=== PATIENT | female | born 1995 | race Caucasian/White ===

== ENCOUNTER 2016-10-02 14:41 | Outpatient (CLI) | payer OTHER | END 2016-10-02 14:42 | disposition home or self-care (01) | DX: R10.2 Pelvic and perineal pain (principal) ==

== ENCOUNTER 2016-10-07 00:19 | Emergency (ER) | payer OTHER ==
[2016-10-07] MEDS ORDERED: ONDANSETRON ODT 4 MG TABLET TL STA (02:02)
[2016-10-07] MEDS ORDERED: ONDANSETRON ODT 4 MG TABLET ONE (02:06)
== END 2016-10-07 02:12 | disposition home or self-care (01) ==
DX: R42 Dizziness and giddiness (principal)
CPT/HCPCS: 81003; 81025; 99283; Q0162

== ENCOUNTER 2016-10-14 10:32 | Outpatient (CLI) | payer OTHER | END 2016-10-14 10:33 | disposition home or self-care (01) | DX: R10.9 Unspecified abdominal pain (principal) ==

== ENCOUNTER 2016-10-19 18:10 | Outpatient (CLI) | payer OTHER ==
--- NOTE | 2016-10-20 12:38 | Ultrasound Report ---
ABDOMINAL ULTRASOUND: 10/19/2016 CLINICAL INDICATION: Pain. TECHNIQUE: Real-time scanning was performed with solar sales representative static images obtained. FINDINGS: The liver measures 14 cm. Hepatic echogenicity is normal. No intrahepatic biliary dilata tion or focal parenchymal lesion is present. The common bile duct measures 2 mm. The gallbladder is normal, as is the pancreas. The kidneys are normal, with the right measuring 9.3 cm and the left me asuring 9.0 cm. The spleen measures 10.2 cm, and demonstrates normal echotexture. The abdominal aor ta is normal in caliber. The inferior vena cava is unremarkable. No free fluid is present. IMPRESSION: NORMAL ABDOMINAL ULTRASOUND. JOB #: [id number] EXT JOB #:[id number]
== END 2016-10-19 18:11 | disposition home or self-care (01) ==
LOC: DI 18:10
PROVIDERS: ATTEND Physician Assistant Medical
DX: R10.9 Unspecified abdominal pain (principal)
CPT/HCPCS: 76700

== ENCOUNTER 2017-02-24 08:00 | Outpatient (CLI) | payer OTHER | END 2017-02-24 08:01 | disposition home or self-care (01) | LOC: LAB.WCP 08:00 | PROVIDERS: ATTEND Physician Assistant Medical | DX: N76.0 Acute vaginitis (principal) | CPT/HCPCS: 87480; 87491; 87510; 87591; 87660 ==

== ENCOUNTER 2018-04-29 20:27 | Outpatient (CLI) | payer OTHER | END 2018-04-29 20:28 | disposition critical access hospital (66) | LOC: EMS 20:27 | PROVIDERS: ATTEND Surgery | DX: M25.572 Pain in left ankle and joints of left foot (principal); V47.5XXA Car driver injured in collision with fixed or stationary object in traffic accident, initial encounter; Y92.410 Unspecified street and highway as the place of occurrence of the external cause | CPT/HCPCS: A0425; A0429 ==

== ENCOUNTER 2018-04-29 20:42 | Emergency (ER) | payer OTHER ==
[2018-04-29] MEDS ORDERED: SODIUM CHLORIDE 0.9% 1,000 ML IV ONE (20:56)
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
[2018-04-29 21:11] LABS: BASOPHILS # (AUTO) 0.1 10^3/uL (0.0-0.1); BASOPHILS % (AUTO) 0.9 %; EOSINOPHILS # (AUTO) 0.1 10^3/uL (0.0-0.7); EOSINOPHILS % (AUTO) 1.2 %; HGB - HEMOGLOBIN 13.3 g/dL (12.0-16.0); LYMPHOCYTES # (AUTO) 2.4 10^3/uL (1.5-3.5); LYMPHOCYTES % (AUTO) 24.4 %; MEAN CORPUSCULAR HEMOGLOBIN 30.5 pg (27.0-31.0); MEAN CORPUSCULAR HGB CONC 33.4 g/dL (32.0-36.0); MEAN CORPUSCULAR VOLUME 91.4 fL (81.0-99.0); MEAN PLATELET VOLUME 9.1 fL (7.9-10.8); MONOCYTES # (AUTO) 0.7 10^3/uL (0.0-1.0); MONOCYTES % (AUTO) 7.3 %; NEUTROPHILS # (AUTO) 6.5 10^3/uL (1.5-6.6); NEUTROPHILS % (AUTO) 66.2 %; PLT - PLATELET COUNT 187 10^3/uL (130-450); RED BLOOD COUNT 4.34 10^6/uL (4.20-5.40); RED CELL DISTRIBUTION WIDTH 12.4 % (12.0-15.0); WHITE BLOOD COUNT 9.8 x10^3/uL (4.8-10.8)
[2018-04-29 21:23] LABS: ALBUMIN 4.3 g/dL (3.2-5.5); ALBUMIN/GLOBULIN RATIO 1.5 (1.0-2.2); BILIRUBIN,TOTAL 0.4 mg/dL (0.2-1.0); CALCIUM 8.8 mg/dL (8.5-10.3); CREATININE 0.7 mg/dL (0.4-1.0); TOTAL PROTEIN 7.1 g/dL (6.7-8.2)
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
[2018-04-29 22:11] LABS: BILIRUBIN,URINE NEGATIVE (NEGATIVE); GLUCOSE, URINE (UA) NEGATIVE (NEGATIVE); KETONES,URINE (UA) NEGATIVE (NEGATIVE); LEUKOCYTE ESTERASE, URINE NEGATIVE (NEGATIVE); NITRITE,URINE NEGATIVE (NEGATIVE); OCCULT BLOOD,URINE MODERATE (NEGATIVE); PROTEIN,URINE NEGATIVE (NEGATIVE); UROBILINOGEN,URINE 0.2 (NORMAL) E.U./dL (NORMAL)
[2018-04-29 22:17] LABS: CLARITY,URINE CLEAR (CLEAR)
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
[2018-04-29 22:25] LABS: BACTERIA,URINE Many /HPF (None Seen); SQUAMOUS EPITHELIAL CELL,UR MANY Squamous (<= Few); WBC CLUMPS,URINE PRESENT
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
[2018-04-29] MEDS ORDERED: BUFFERED LIDOCAINE 10 ML SYRINGE ONE (23:05)
[2018-04-29] MEDS ORDERED: BUFFERED LIDOCAINE 10 ML SYRINGE IU ONE (23:09)
[2018-04-29] MEDS ORDERED: HYDROcod/ACETAM 5/325 MG TABLET PO STA (23:35)
[2018-04-29] MEDS ORDERED: KETOROLAC 60 MG/2 ML VIAL IVP STA (23:35)
[2018-04-29 23:55] VITALS: BP 128/82
== END 2018-04-30 00:15 | disposition home or self-care (01) ==
LOC: ED 20:42
DX: S09.90XA Unspecified injury of head, initial encounter (principal); S01.411A Laceration without foreign body of right cheek and temporomandibular area, initial encounter; S81.812A Laceration without foreign body, left lower leg, initial encounter; S16.1XXA Strain of muscle, fascia and tendon at neck level, initial encounter; S00.83XA Contusion of other part of head, initial encounter; S02.2XXA Fracture of nasal bones, initial encounter for closed fracture; S01.81XA Laceration without foreign body of other part of head, initial encounter; S60.221A Contusion of right hand, initial encounter; S80.10XA Contusion of unspecified lower leg, initial encounter; S01.512A Laceration without foreign body of oral cavity, initial encounter; V47.0XXA Car driver injured in collision with fixed or stationary object in nontraffic accident, initial encounter
CPT/HCPCS: 12001; 12011; 36415; 70450; 70486; 71046; 72125; 73080; 73130; 73560; 73590; 80053; 81001; 83690; 84702; 85025; 96361; 96374; 99284; A9270; 81003; 87086

== ENCOUNTER 2018-10-31 09:32 | Outpatient (CLI) | payer OTHER | END 2018-10-31 23:59 | disposition home or self-care (01) | LOC: LAB.WCP 09:32 | PROVIDERS: ATTEND Nurse Practitioner | DX: N91.2 Amenorrhea, unspecified (principal) | CPT/HCPCS: 36415; 84702 ==

== ENCOUNTER 2020-08-16 14:33 | Outpatient (CLI) | payer OTHER ==
--- NOTE | 2020-08-16 15:21 | XRAY Report ---
PROCEDURE: Hand 2 View BILAT INDICATIONS: HAND JOINT PAIN TECHNIQUE: 2 views of the hand(s) acquired. COMPARISON: Right hand radiograph dated 04/29/2018 FINDINGS: Bones: No fractures or dislocations. No suspicious bony lesions. Soft tissues: No suspicious soft tissue calcifications. IMPRESSION: Unremarkable radiographic examination of bilateral hands. No bony erosive changes are noted to sugges t inflammatory arthropathy. Reviewed by: Sanket Andrew MD on 08/16/2020 3:19 PM PST Approved by: Sanket Andrew MD on 08/16/2020 3:19 PM PST Station ID: [id number]
[2020-08-16 18:17] LABS: BASOPHILS # (AUTO) 0.1 10^3/uL (0.0-0.1); BASOPHILS % (AUTO) 0.9 %; EOSINOPHILS # (AUTO) 0.1 10^3/uL (0.0-0.7); EOSINOPHILS % (AUTO) 1.7 %; HGB - HEMOGLOBIN 13.7 g/dL (12.0-16.0); LYMPHOCYTES # (AUTO) 1.6 10^3/uL (1.5-3.5); MEAN CORPUSCULAR HEMOGLOBIN 30.8 pg (27.0-31.0); MEAN CORPUSCULAR HGB CONC 32.5 g/dL (32.0-36.0); MEAN CORPUSCULAR VOLUME 94.8 fL (81.0-99.0); MEAN PLATELET VOLUME 11.7 fL (7.9-10.8); MONOCYTES # (AUTO) 0.5 10^3/uL (0.0-1.0); MONOCYTES % (AUTO) 8.9 %; NEUTROPHILS # (AUTO) 3.5 10^3/uL (1.5-6.6); NEUTROPHILS % (AUTO) 60.3 %; PLT - PLATELET COUNT 213 10^3/uL (130-450); RED BLOOD COUNT 4.45 10^6/uL (4.20-5.40); RED CELL DISTRIBUTION WIDTH 11.6 % (12.0-15.0); WHITE BLOOD COUNT 5.8 x10^3/uL (4.8-10.8)
[2020-08-16 18:46] LABS: HEMOGLOBIN A1c% 5.1 % (4.27-6.07)
[2020-08-16 18:50] LABS: ALBUMIN 4.6 g/dL (3.2-5.5); ALBUMIN/GLOBULIN RATIO 1.8 (1.0-2.2); ALKALINE PHOSPHATASE 60 IU/L (42-121); ALT ALANINE AMINOTRANSFERASE 20 IU/L (10-60); AST ASPARTATE AMINOTRANSFERASE 19 IU/L (10-42); BILIRUBIN,TOTAL 0.4 mg/dL (0.2-1.0); BUN - BLOOD UREA NITROGEN 14 mg/dL (6-20); CALCIUM 9.5 mg/dL (8.5-10.3); CARBON DIOXIDE - CO2 28 mmol/L (21-32); CHLORIDE 102 mmol/L (101-111); CREATININE 0.7 mg/dL (0.4-1.0); GLUCOSE 100 mg/dL (70-100); SODIUM 137 mmol/L (135-145); TOTAL PROTEIN 7.2 g/dL (6.7-8.2)
[2020-08-16 18:57] LABS: CRP - C-REACTIVE PROTEIN < 1.0 mg/dL (0-1.0)
== END 2020-08-16 23:59 | disposition home or self-care (01) ==
LOC: DI.WCP 14:33
PROVIDERS: ATTEND Physician Assistant
DX: Z00.00 Encounter for general adult medical examination without abnormal findings (principal); M79.641 Pain in right hand; M79.642 Pain in left hand
CPT/HCPCS: 36415; 80053; 83036; 84443; 85025; 85651; 86038; 86140

== ENCOUNTER 2020-09-13 11:46 | Outpatient (CLI) | payer OTHER | END 2020-09-13 23:59 | disposition home or self-care (01) | LOC: LAB.WCP 11:46 | PROVIDERS: ATTEND Physician Assistant Medical | DX: F41.0 Panic disorder [episodic paroxysmal anxiety] (principal); M25.549 Pain in joints of unspecified hand | CPT/HCPCS: 36415; 82306 ==

== ENCOUNTER 2020-10-24 16:57 | Outpatient (CLI) | payer OTHER ==
--- NOTE | 2020-10-25 13:32 | Ultrasound Report ---
PROCEDURE: Pelvic w/Transvaginal INDICATIONS: INFERTILITY INVESTIGATION/TESTING TECHNIQUE: Real-time scanning was performed of the pelvic organs, with image documentation. Additional endovagi nal scanning was necessary due to incomplete visualization of the adnexal and endometrial structures by transabdominal scanning. COMPARISON: Pelvic ultrasound 10/02/2016 FINDINGS: No pathologic free abdominal or pelvic fluid. Uterus: Uterus is normal in size at 7.7 x 3.7 x 4.8 cm. The endometrium measures 8.3 mm in combined thickness. Ovaries: Right ovary measures 4.5 x 2.8 x 3.9 cm, volume 25.8 cc. There is a focus of complex echoge nicity within the right ovary measuring 1.9 x 2.1 x 2.6 cm. Left ovary measures 3.3 x 1.4 x 2.8 cm, v olume 1.9 cc. IMPRESSION: Focus of heterogeneous echogenicity within the right ovary suggestive of hemorrhagic cyst. As clinica lly indicated, follow-up ultrasound to document resolution may be obtained in 6 weeks. Reviewed by: Ana Rosa Flynn MD on 10/25/2020 1:31 PM PDT Approved by: Ana Rosa Flynn MD on 10/25/2020 1:31 PM PDT Station ID: [id number]
== END 2020-10-24 16:58 | disposition home or self-care (01) ==
LOC: DI 16:57
PROVIDERS: ATTEND Nurse Practitioner Obstetrics & Gynecology
DX: Z31.41 Encounter for fertility testing (principal)

== ENCOUNTER 2020-10-29 13:59 | Outpatient (CLI) | payer OTHER | END 2020-10-29 14:00 | disposition home or self-care (01) | LOC: NS 13:59 | PROVIDERS: ATTEND Nurse Practitioner Obstetrics & Gynecology | DX: Z71.3 Dietary counseling and surveillance (principal); R63.6 Underweight; Z72.4 Inappropriate diet and eating habits | CPT/HCPCS: 97802 ==

== ENCOUNTER 2020-11-18 14:32 | Outpatient (CLI) | payer OTHER ==
--- NOTE | 2020-11-18 17:16 | Ultrasound Report ---
PROCEDURE: Pelvic w/Transvaginal INDICATIONS: RT SIDE OVARIAN CYST TECHNIQUE: Real-time scanning was performed of the pelvic organs, with image documentation. Additional endovagi nal scanning was necessary due to incomplete visualization of the adnexal and endometrial structures by transabdominal scanning. COMPARISON: None. FINDINGS: No pathologic free abdominal or pelvic fluid. Uterus: Uterus is normal in size at 3.3 x 4.9 x 8.3 cm cm. The endometrium measures 7.0 mm in combi nichole thickness. Ovaries: The right ovary measures 3.1 x 2.0 x 2.9 cm. A right-sided ovarian cyst previously present has resolved. The left ovary measures 3.5 x 2.2 x 2.8 cm. IMPRESSION: Resolution of right-sided ovarian cyst. Normal-appearing ovaries bilaterally, normal appearing uterus . Reviewed by: Damir Marcus MD on 11/18/2020 5:15 PM PDT Approved by: Damir Marcus MD on 11/18/2020 5:15 PM PDT Station ID: [id number]
== END 2020-11-18 14:33 | disposition home or self-care (01) ==
LOC: DI 14:32
PROVIDERS: ATTEND Nurse Practitioner Obstetrics & Gynecology
DX: N83.291 Other ovarian cyst, right side (principal)

== ENCOUNTER 2021-04-16 08:00 | Outpatient (CLI) | payer OTHER | END 2021-04-16 23:59 | disposition home or self-care (01) | LOC: LAB.WCP 08:00 | PROVIDERS: ATTEND Physician Assistant Medical | DX: N91.2 Amenorrhea, unspecified (principal) | CPT/HCPCS: 36415; 84702 ==

== ENCOUNTER 2021-04-22 08:00 | Outpatient (CLI) | payer OTHER ==
[2021-04-22 17:05] LABS: BILIRUBIN,URINE NEGATIVE (NEGATIVE); GLUCOSE, URINE (UA) NEGATIVE (NEGATIVE); KETONES,URINE (UA) NEGATIVE (NEGATIVE); LEUKOCYTE ESTERASE, URINE MODERATE (NEGATIVE); NITRITE,URINE NEGATIVE (NEGATIVE); OCCULT BLOOD,URINE NEGATIVE (NEGATIVE); PH,URINE 7.5 PH (5.0-7.5); PROTEIN,URINE NEGATIVE (NEGATIVE); UROBILINOGEN,URINE 0.2 (NORMAL) E.U./dL (NORMAL)
[2021-04-22 17:17] LABS: CLARITY,URINE HAZY (CLEAR); RBC,URINE None Seen /HPF (0-5); SQUAMOUS EPITHELIAL CELL,UR MANY Squamous (<= Few)
[2021-04-22 17:18] LABS: BACTERIA,URINE Few /HPF (None Seen)
== END 2021-04-22 23:59 | disposition home or self-care (01) ==
LOC: LAB.WC 08:00
PROVIDERS: ATTEND Nurse Practitioner Obstetrics & Gynecology
DX: Z32.01 Encounter for pregnancy test, result positive (principal)
CPT/HCPCS: 81001; 87086

== ENCOUNTER 2021-04-30 20:18 | Outpatient (CLI) | payer OTHER ==
--- NOTE | 2021-04-30 23:53 | Ultrasound Report ---
PROCEDURE: OB First Trimester INDICATIONS: + PREG TEST OUTSIDE/PRIOR DATING DATA: Last menstrual period (LMP): 02/12/2021. LMP-based estimated date of delivery (DEISI): 11/19/2021. First dating scan (date and location): 04/30/2021. Estimated date of delivery (DEISI) from first dating scan: 11/20/2021. The below data below was generated using the current study generated DEISI of 11/20/2021 TECHNIQUE: Real-time scanning was performed of the fetus and maternal pelvic organs, with image documentation. COMPARISON: None FINDINGS: Embryo: Single intrauterine gestation is seen with fetus and yolk sac seen. [place]-rump length measur es 3.93 cm. Estimated gestational age is 10 weeks, 6 days. Heart rate: 166 bpm. Cervix is closed and appears visually normal in length. Subchorionic hematoma is seen measures 2.1 x 0.9 x 2.1 cm in size. Measurement variability in dating: +/- 4 weeks by LMP, +/- 7 days by mean sac diameter (use before 6 weeks gestation if crown-rump length not able to be measured), +/- 5 days by crown-rump length (6-12 weeks gestation). Maternal organs: Left ovary is within normal limits. Corpus luteal cyst is noted in right ovary measu res 2.1 x 2.2 x 2.6 cm in size. IMPRESSION: 1. Single live intrauterine with fetus and yolk sac seen. heart rate is 1 66 bpm. Est imated gestational age is 10 weeks, 6 days. 2. Small subchorionic hematoma as above. 3. Corpus luteal cyst in right ovary as above. Reviewed by: Sanket Villa MD on 04/30/2021 11:51 PM PDT Approved by: Sanket Villa MD on 04/30/2021 11:51 PM PDT Station ID: [id number]
== END 2021-04-30 20:19 | disposition home or self-care (01) ==
LOC: DI 20:18
PROVIDERS: ATTEND Nurse Practitioner Obstetrics & Gynecology
DX: Z32.01 Encounter for pregnancy test, result positive (principal); O46.91 Antepartum hemorrhage, unspecified, first trimester; Z3A.10 10 weeks gestation of pregnancy; O34.81 Maternal care for other abnormalities of pelvic organs, first trimester; N83.11 Corpus luteum cyst of right ovary

== ENCOUNTER 2021-05-02 16:00 | Outpatient (CLI) | payer OTHER ==
[2021-05-02 21:36] LABS: CHLAMYDIA TRACHOMATIS DNA NEGATIVE (NEGATIVE); NEISSERIA GONORRHOEAE DNA NEGATIVE (NEGATIVE); TRICHOMONAS VAGINALIS DNA NEGATIVE (NEGATIVE)
== END 2021-05-02 23:59 | disposition home or self-care (01) ==
LOC: LAB 16:00
PROVIDERS: ATTEND Nurse Practitioner Obstetrics & Gynecology
DX: Z34.90 Encounter for supervision of normal pregnancy, unspecified, unspecified trimester (principal); Z36.89 Encounter for other specified antenatal screening; Z36.8A Encounter for antenatal screening for other genetic defects
CPT/HCPCS: 81220; 81243; 81329; 81599; 87491; 87591; 87661

== ENCOUNTER 2021-05-02 16:38 | Outpatient (CLI) | payer OTHER | END 2021-05-02 16:39 | disposition home or self-care (01) | LOC: LAB 16:38 | PROVIDERS: ATTEND Nurse Practitioner Obstetrics & Gynecology | DX: Z36.8A Encounter for antenatal screening for other genetic defects (principal) | CPT/HCPCS: 81599 ==

== ENCOUNTER 2021-06-19 15:23 | Outpatient (CLI) | payer OTHER ==
[2021-06-19 16:01] LABS: BASOPHILS # (AUTO) 0.1 10^3/uL (0.0-0.1); BASOPHILS % (AUTO) 0.8 %; EOSINOPHILS # (AUTO) 0.2 10^3/uL (0.0-0.7); EOSINOPHILS % (AUTO) 2.5 %; HCT - HEMATOCRIT 38.6 % (37.0-47.0); LYMPHOCYTES # (AUTO) 1.8 10^3/uL (1.5-3.5); MEAN CORPUSCULAR HEMOGLOBIN 31.2 pg (27.0-31.0); MEAN CORPUSCULAR HGB CONC 33.7 g/dL (32.0-36.0); MEAN CORPUSCULAR VOLUME 92.6 fL (81.0-99.0); MEAN PLATELET VOLUME 11.2 fL (7.9-10.8); MONOCYTES # (AUTO) 0.9 10^3/uL (0.0-1.0); MONOCYTES % (AUTO) 9.7 %; NEUTROPHILS # (AUTO) 5.9 10^3/uL (1.5-6.6); NEUTROPHILS % (AUTO) 66.2 %; PLT - PLATELET COUNT 196 10^3/uL (130-450); RED BLOOD COUNT 4.17 10^6/uL (4.20-5.40); RED CELL DISTRIBUTION WIDTH 12.6 % (12.0-15.0); WHITE BLOOD COUNT 8.9 x10^3/uL (4.8-10.8)
[2021-06-20 12:57] LABS: AFP MOM 0.51; AGE RISK DOWN SYNDROME 1 IN 987; CALC'D GESTATIONAL AGE 18.1 weeks; CIGARETTE SMOKER? NOT GIVEN; DONOR AGE: EGG RETRIEVAL NOT GIVEN; DONOR EGG NO; ESTRIOL MOM 0.94; HCG MOM 1.29; HX OF NEURAL TUBE DEFECTS NO; INHIBIN A MOM 0.96; INSULIN DEPEND DIABETIC NO; MATERNAL WEIGHT 107 lbs; MSS DOWN SYNDROME RISK 1 IN 1287; MSS3 TRISOMY 18 RISK <1 IN 5000; NUMBER OF FETUSES 1; PREV PREGNANCY DOWN SYND NO; RISK FOR ONTD <1 IN 5000
[2021-06-20 13:21] LABS: HEPATITIS C ANTIBODY NON-REACTIVE (NON-REACTIVE)
[2021-06-20 14:12] LABS: HEPATITIS B SURFACE ANTIGEN NON-REACTIVE (NON-REACTIVE)
[2021-06-20 15:41] LABS: HIV AG/AB 4TH GEN NON-REACTIVE (NON-REACTIVE)
== END 2021-06-19 15:24 | disposition home or self-care (01) ==
LOC: LAB 15:23
PROVIDERS: ATTEND Nurse Practitioner Obstetrics & Gynecology
DX: Z36.89 Encounter for other specified antenatal screening (principal); Z36.8A Encounter for antenatal screening for other genetic defects
CPT/HCPCS: 36415; 81511; 85025; 86592; 86762; 86787; 86803; 86850; 86900; 86901; 87340; 87389

== ENCOUNTER 2021-07-01 17:05 | Outpatient (CLI) | payer OTHER ==
--- NOTE | 2021-07-01 17:09 | Ultrasound Report ---
PROCEDURE: OB Detailed Eval INDICATIONS: SUPERVISION OF OUTSIDE/PRIOR DATING DATA: Last menstrual period (LMP): 02/12/2021. LMP-based estimated date of delivery (DEISI): 11/19/2021. First dating scan (date and location): 04/30/2021. Estimated date of delivery (DEISI) from first dating scan: 11/20/2021. The below data below was generated using the study generated DEISI of 11/20/2021 TECHNIQUE: Real-time scanning was performed of the fetus, with image documentation and biometric measurements. COMPARISON: 04/30/2021. FINDINGS: General: A single living intrauterine gestation is present. Presentation: Breech Placenta: Placental position is posterior, without previa. Amniotic fluid index: 15.3 cm, normal for gestational age. heart rate: 137 beats per minute. Maternal cervical canal: 3.3 cm long and is closed; normal length is 2.5 cm or more. biometrics: Biparietal diameter: 4.38 cm, 19 weeks, 2 days Head circumference: 16.76 cm, 19 weeks, 3 days Abdominal circumference: 14.9 cm, 20 weeks, 1 day Femur length: 3.09 cm, 19 weeks, 4 days Estimated gestational age from initial scan: 19 weeks, 5 days Composite gestational age from present scan: 19 weeks, 4 days Estimated weight and percentile: 315 g, 51.7%. Measurement variability in biometric dating: +/- 10 days from 12-20 weeks gestation, +/- 2 weeks from 20-30 weeks gestation, +/- 3 weeks at 30 weeks gestation or later. Anatomic survey: Neuro: Ventricles are normal at less than 10 mm. Cisterna magna is normal at 3-11 mm. Cerebellum i s normal in size and morphology. Nuchal skin fold: Normal at less than 6 mm between 14 and 20 weeks gestational age. Face: Nose and lips, facial profile are normal. Spine: No evidence for spina bifida. Heart: 4-chambered heart is present, with normal ventricular outflow tracts. Diaphragm: Diaphragm is intact. Stomach: Left-sided stomach is present. Kidneys: No hydronephrosis. Normal is less than 5 mm in 2nd trimester, less than 7 mm in 3rd trimester. Cord: 3 vessel cord has orthotopic insertion. Bladder: Normal in size. Extremities: All 4 extremities are visualized. IMPRESSION: 1. Single live intrauterine with fetus in presentation. heart rate is 137 bpm. Normal amount of amniotic fluid. Normal growth. 2. Normal anatomic survey. Reviewed by: Sanket Andrew MD on 07/01/2021 5:07 PM PST Approved by: Sanket Andrew MD on 07/01/2021 5:07 PM [facility] Station ID: [id number]
== END 2021-07-01 23:59 | disposition home or self-care (01) ==
LOC: DI 17:05
PROVIDERS: ATTEND Nurse Practitioner Obstetrics & Gynecology
DX: Z34.00 Encounter for supervision of normal first pregnancy, unspecified trimester (principal)

== ENCOUNTER 2021-09-02 09:44 | Outpatient (CLI) | payer OTHER ==
[2021-09-02 18:51] LABS: HCT - HEMATOCRIT 36.6 % (37.0-47.0); HGB - HEMOGLOBIN 11.9 g/dL (12.0-16.0); MEAN CORPUSCULAR HEMOGLOBIN 31.1 pg (27.0-31.0); MEAN CORPUSCULAR HGB CONC 32.5 g/dL (32.0-36.0); MEAN CORPUSCULAR VOLUME 95.6 fL (81.0-99.0); MEAN PLATELET VOLUME 12.6 fL (7.9-10.8); RED BLOOD COUNT 3.83 10^6/uL (4.20-5.40); RED CELL DISTRIBUTION WIDTH 12.1 % (12.0-15.0); WHITE BLOOD COUNT 8.5 x10^3/uL (4.8-10.8)
== END 2021-09-02 23:59 | disposition home or self-care (01) ==
LOC: LAB.WCP 09:44
PROVIDERS: ATTEND Nurse Practitioner Obstetrics & Gynecology
DX: Z34.90 Encounter for supervision of normal pregnancy, unspecified, unspecified trimester (principal); Z36.89 Encounter for other specified antenatal screening
CPT/HCPCS: 36415; 82950; 85027

== ENCOUNTER 2021-09-16 10:58 | Outpatient (CLI) | payer OTHER | END 2021-09-16 10:59 | disposition home or self-care (01) | LOC: LAB.N 10:58 | PROVIDERS: ATTEND Nurse Practitioner Obstetrics & Gynecology | DX: Z53.9 Procedure and treatment not carried out, unspecified reason (principal) ==

== ENCOUNTER 2021-09-18 08:04 | Outpatient (CLI) | payer OTHER ==
[2021-09-18 08:31] LABS: GTT GLUCOSE,FASTING 112 mg/dL (70-100)
== END 2021-09-18 08:05 | disposition home or self-care (01) ==
LOC: LAB 08:04
PROVIDERS: ATTEND Nurse Practitioner Obstetrics & Gynecology
DX: R73.02 Impaired glucose tolerance (oral) (principal)
CPT/HCPCS: 36415; 82951; 82952

== ENCOUNTER 2021-10-21 08:00 | Outpatient (CLI) | payer OTHER | END 2021-10-21 23:59 | disposition home or self-care (01) | LOC: LAB.R 08:00 | PROVIDERS: ATTEND Nurse Practitioner Obstetrics & Gynecology | DX: Z36.85 Encounter for antenatal screening for Streptococcus B (principal) | CPT/HCPCS: 87797 ==

== ENCOUNTER 2021-10-30 13:06 | Outpatient (CLI) | payer OTHER ==
[2021-10-30 13:22] LABS: BASOPHILS % (AUTO) 0.5 %; EOSINOPHILS # (AUTO) 0.1 10^3/uL (0.0-0.7); HCT - HEMATOCRIT 37.3 % (37.0-47.0); HGB - HEMOGLOBIN 12.5 g/dL (12.0-16.0); LYMPHOCYTES # (AUTO) 1.4 10^3/uL (1.5-3.5); LYMPHOCYTES % (AUTO) 16.4 %; MEAN CORPUSCULAR HEMOGLOBIN 30.7 pg (27.0-31.0); MEAN CORPUSCULAR HGB CONC 33.5 g/dL (32.0-36.0); MEAN CORPUSCULAR VOLUME 91.6 fL (81.0-99.0); MEAN PLATELET VOLUME 12.4 fL (7.9-10.8); MONOCYTES # (AUTO) 0.8 10^3/uL (0.0-1.0); MONOCYTES % (AUTO) 9.3 %; NEUTROPHILS # (AUTO) 5.9 10^3/uL (1.5-6.6); NEUTROPHILS % (AUTO) 71.6 %; PLT - PLATELET COUNT 125 10^3/uL (130-450); RED BLOOD COUNT 4.07 10^6/uL (4.20-5.40); RED CELL DISTRIBUTION WIDTH 12.7 % (12.0-15.0); WHITE BLOOD COUNT 8.3 x10^3/uL (4.8-10.8)
[2021-10-30 13:38] LABS: SLIDE REVIEW? Indicated
== END 2021-10-30 13:07 | disposition home or self-care (01) ==
LOC: LAB 13:06
PROVIDERS: ATTEND Nurse Practitioner Obstetrics & Gynecology
DX: D69.6 Thrombocytopenia, unspecified (principal)
CPT/HCPCS: 36415; 85025

== ENCOUNTER 2021-11-11 16:55 | Outpatient (CLI) | payer OTHER | END 2021-11-11 16:56 | disposition home or self-care (01) | LOC: LAB 16:55 | PROVIDERS: ATTEND Nurse Practitioner Obstetrics & Gynecology | DX: O99.019 Anemia complicating pregnancy, unspecified trimester (principal); D69.6 Thrombocytopenia, unspecified | CPT/HCPCS: 36415; 81599; 83020; 85014; 85018; 85041; 85049 ==

== ENCOUNTER 2021-11-12 13:56 | Inpatient (IN) | payer OTHER ==
[2021-11-12 14:53] LABS: BASOPHILS % (AUTO) 0.4 %; EOSINOPHILS % (AUTO) 0.9 %; HCT - HEMATOCRIT 35.8 % (37.0-47.0); HGB - HEMOGLOBIN 12.2 g/dL (12.0-16.0); LYMPHOCYTES % (AUTO) 17.2 %; MEAN CORPUSCULAR HGB CONC 34.1 g/dL (32.0-36.0); MEAN CORPUSCULAR VOLUME 90.9 fL (81.0-99.0); MEAN PLATELET VOLUME 12.5 fL (7.9-10.8); MONOCYTES % (AUTO) 10.9 %; NEUTROPHILS % (AUTO) 69.5 %; PLT - PLATELET COUNT 123 10^3/uL (130-450); RED BLOOD COUNT 3.94 10^6/uL (4.20-5.40); RED CELL DISTRIBUTION WIDTH 13.1 % (12.0-15.0); WHITE BLOOD COUNT 7.5 x10^3/uL (4.8-10.8)
[2021-11-12] MEDS ORDERED: miSOPROStoL 100 MCG TABLET BC SCH (15:00)
[2021-11-12 15:41] LABS: ABNORMAL LYMPHS % (MANUAL) 0 %
[2021-11-12 15:47] LABS: BAND NEUTROPHILS % (MANUAL) 1 %; BASOPHILS # (MANUAL) 0.1 10^3/uL (0-0.1); BASOPHILS % (MANUAL) 1 %; DIFFERENTIAL COMMENT MANUAL DIFFERENTIAL; LYMPHOCYTES # (MANUAL) 1.8 10^3/uL (1.5-3.5); LYMPHOCYTES % (MANUAL) 24 %; METAMYELOCYTES % (MANUAL) 1 %; MONOCYTES # (MANUAL) 0.5 10^3/uL (0.0-1.0); NEUTROPHILS # (MANUAL) 5.1 10^3/uL (1.5-6.6); PLATELET ESTIMATE, MANUAL DECREASED (<130,000) (NORMAL); PLATELET MORPHOLOGY 1+ GIANT PLATELETS (NORMAL); RBC MORPHOLOGY (MULTIPLE) NORMAL APPEARANCE (NORMAL); WBC MORPHOLOGY (MULTIPLE) NORMAL APPEARANCE (NORMAL)
[2021-11-12 16:54] LABS: ALBUMIN 2.8 g/dL (3.2-5.5); ALBUMIN/GLOBULIN RATIO 0.8 (1.0-2.2); BILIRUBIN,TOTAL 0.7 mg/dL (0.2-1.0); CALCIUM 9.1 mg/dL (8.5-10.3); CREATININE 0.7 mg/dL (0.4-1.0); TOTAL PROTEIN 6.3 g/dL (6.7-8.2)
[2021-11-12] MEDS ORDERED: LIDOCAINE-MPF 1% 30 ML VIAL ID PRN (16:54)
[2021-11-12] MEDS ORDERED: METHYLERGONOVINE 0.2 MG/ML VIAL IM PRN (16:54)
[2021-11-12] MEDS ORDERED: CARBOPROST TROMETHAMINE 250 MCG/ML AMP IM PRN (16:54)
[2021-11-12] MEDS ORDERED: TERBUTALINE 1 MG/ML VIAL SUBQ PRN (16:54)
[2021-11-12] MEDS ORDERED: OXYTOCIN 10 UNIT/ML VIAL IM PRN (16:54)
[2021-11-12] MEDS ORDERED: LABETALOL 20 MG/4 ML SYRINGE IVP PRN (16:54)
[2021-11-12] MEDS ORDERED: SODIUM CHLORIDE FLUSH 0.9% 10 ML SYRINGE IVP PRN (16:54)
[2021-11-12] MEDS ORDERED: OXYTOCIN/SODIUM CHLORIDE 500 ML IV PRN (16:54)
[2021-11-12] MEDS ORDERED: fentaNYL 100 MCG/2 ML VIAL IVP PRN (16:54)
[2021-11-12] MEDS ORDERED: TRANEXAMIC ACID IN NACL 1,000 MG/100 ML BAG IV PRN (16:54)
[2021-11-12] MEDS ORDERED: miSOPROStoL 200 MCG TABLET BC PRN (16:54)
[2021-11-12] MEDS ORDERED: miSOPROStoL 200 MCG TABLET PR PRN (16:54)
[2021-11-12 16:56] LABS: CREATININE,URINE 38.6 mg/dL; PROTEIN/CREATININE RATIO,URINE 0.2 (<=0.2)
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
--- NOTE | 2021-11-12 19:39 | PROVIDER PROGRESS NOTE ---
Labor Progress Note - Uterine Monitoring Uterine Monitoring Mode: positive: External toco Contraction Frequency (min/apart): 2-5 Contraction Intensity: positive: Mild Uterine Resting Tone: positive: Soft - Monitoring Monitor Mode: positive: External ultrasound Heart Rate Baseline: 130 Heart Rate Variability: positive: Moderate (6-25 bmp) Accelerations: positive: Present, 15x15 Decelerations: positive: None Strip Review: positive: Category I - Vaginal Exam Dilation (in cm): 4 Effacement (%): 80 Station: -1 Cervical Position: Anterior - Labor Progress Note Labor Progress Note/Additional Text: S: Feeling some mild tightening in abdomen on occasion but denies pain. Mood is good. She is sitting on the birthing ball. Denies DELGADO, visual disturbances, RUQ or epigastric pain. Partner is supportive at the bedside. O: FHR baseline 130s, moderate variability, + accels, no decels Contractions palpate mild every 2-5 minutes with soft resting tone. Some intermittent uterine irritability noted SVE 4/80/-1, anterior. Soft. Vertex. AROM 1853 for moderate amount of clear fluid Heart RRR w/o M/G/R, lungs CTAB, abdomen gravid, soft, nontender. DTRs 2+, no clonus BP elevated 143/85 - no Pre-Eclampsia s/sx. - PIH labs WNL (PLT 123) Assessment: 26yo @ 39.0wks gestation by LMP c/w 10.6wk U/S A1GDM - tight glycemic control Gestational thrombocytopenia Gestational hypertension complicating GBS negative FHR Category I Plan: Reviewed plan of care for continued induction of labor with Dr. Freeman. Repeat CBC, CMP, and urine protein creatinine ratio q 8hrs. Pt is typed and crossed x 2 units. Serial BP monitoring - reviewed parameters with labor RN. Initial pitocin for labor augmentation in 1 hour with titration per protocol. Continuous monitoring Encouraged ambulation and position changes. Jacuzzi PRN. Nitrous oxide PRN. Epidural per maternal request. Reviewed PLT with anesthesia provider customer operations associate who is aware. Anticipate .
[2021-11-12 22:30] LABS: CREATININE,URINE 36.3 mg/dL; PROTEIN/CREATININE RATIO,URINE 0.8 (<=0.2)
[2021-11-12] MEDS: LACTATED RINGERS 1,000 ML IV SCH (22:53)
[2021-11-12 23:03] LABS: BASOPHILS % (AUTO) 0.2 %; EOSINOPHILS % (AUTO) 0.2 %; HCT - HEMATOCRIT 35.3 % (37.0-47.0); HGB - HEMOGLOBIN 12.1 g/dL (12.0-16.0); LYMPHOCYTES # (AUTO) 1.2 10^3/uL (1.5-3.5); LYMPHOCYTES % (AUTO) 9.8 %; MEAN CORPUSCULAR HEMOGLOBIN 30.9 pg (27.0-31.0); MEAN CORPUSCULAR HGB CONC 34.3 g/dL (32.0-36.0); MEAN CORPUSCULAR VOLUME 90.1 fL (81.0-99.0); MEAN PLATELET VOLUME 13.2 fL (7.9-10.8); MONOCYTES # (AUTO) 1.1 10^3/uL (0.0-1.0); MONOCYTES % (AUTO) 8.8 %; NEUTROPHILS # (AUTO) 10.1 10^3/uL (1.5-6.6); NEUTROPHILS % (AUTO) 80.4 %; PLT - PLATELET COUNT 133 10^3/uL (130-450); RED BLOOD COUNT 3.92 10^6/uL (4.20-5.40); WHITE BLOOD COUNT 12.5 x10^3/uL (4.8-10.8)
[2021-11-12 23:06] LABS: SLIDE REVIEW? Indicated
[2021-11-12 23:13] LABS: ALBUMIN 2.8 g/dL (3.2-5.5); ALBUMIN/GLOBULIN RATIO 0.8 (1.0-2.2); BILIRUBIN,TOTAL 0.5 mg/dL (0.2-1.0); CALCIUM 8.9 mg/dL (8.5-10.3); CREATININE 0.7 mg/dL (0.4-1.0); POTASSIUM 3.7 mmol/L (3.5-5.0); TOTAL PROTEIN 6.2 g/dL (6.7-8.2)
[2021-11-12 23:40] LABS: PLATELET ESTIMATE, MANUAL NORMAL (130-450,000) (NORMAL); RBC MORPHOLOGY (MULTIPLE) NORMAL APPEARANCE (NORMAL)
[2021-11-12] MEDS ORDERED: ROPIVACAINE 0.2% 200 MG/100 ML BAG EP ONE (23:48)
[2021-11-13] MEDS ORDERED: NALBUPHINE 10 MG/ML AMP IVP PRN (00:21)
[2021-11-13] MEDS ORDERED: diphenhydrAMINE INJ 50 MG/ML VIAL IVP PRN (00:21)
[2021-11-13] MEDS ORDERED: ROPIVACAINE 0.2% 200 MG/100 ML BAG EP PRN (00:21)
[2021-11-13] MEDS ORDERED: ePHEDrine 50 MG/ML VIAL IVP PRN (00:21)
[2021-11-13] MEDS ORDERED: NALOXONE 0.4 MG/ML VIAL IVP PRN (00:21)
[2021-11-13] MEDS ORDERED: ONDANSETRON 4 MG/2 ML VIAL IVP PRN (00:21)
[2021-11-13] MEDS ORDERED: METOCLOPRAMIDE 10 MG/2 ML VIAL IVP PRN (00:21)
--- NOTE | 2021-11-13 00:26 | ANESTHESIA ---
Pre-Anesthesia VS, & Labs - Diagnosis labor induction - Procedure labor epidural Vital Signs: Temp Pulse Resp BP Pulse Ox 37.4 C 11/12/21 14:48 Height: 5 ft 1 in Weight (kg): 69.853 kg Body Mass Index: 29.0 BMI Classification: Overweight - NPO Other (clears) - Is Patient ?: Yes - Lab Results Current Lab Results: Laboratory Tests 11/12/21 22:53: WBC 12.5 H, RBC 3.92 L, Hgb 12.1, Hct 35.3 L, MCV 90.1, MCH 30.9, MCHC 34.3, RDW 13.0, Plt Count 133, MPV 13.2 H, Neut # (Auto) 10.1 H, Lymph # (Auto) 1.2 L, [place] # (Auto) 1.1 H, Eos # (Auto) 0.0, Baso # (Auto) 0.0, Absolute Nucleated RBC 0.00, Nucleated RBC % 0.0, Manual Slide Review Indicated, Platelet Estimate NORMAL (130-450,000), RBC Morph Micro Appear NORMAL APPEARANCE 11/12/21 22:53: Sodium 132 L, Potassium 3.7, Chloride 104, Carbon Dioxide 17 L, Anion Gap 11.0, BUN 15, Creatinine 0.7, Estimated GFR (MDRD) 101, Glucose 104 H, Calcium 8.9, Total Bilirubin 0.5, AST 19, ALT 20, Alkaline Phosphatase 87, Total Protein 6.2 L, Albumin 2.8 L, Globulin 3.4, Albumin/Globulin Ratio 0.8 L 11/12/21 16:29: Sodium 132 L, Potassium 4.0, Chloride 103, Carbon Dioxide 22, Anion Gap 7.0, BUN 14, Creatinine 0.7, Estimated GFR (MDRD) 101, Glucose 78, Calcium 9.1, Total Bilirubin 0.7, AST 21, ALT 21, Alkaline Phosphatase 89, Total Protein 6.3 L, Albumin 2.8 L, Globulin 3.5, Albumin/Globulin Ratio 0.8 L 11/12/21 14:20: WBC 7.5, RBC 3.94 L, Hgb 12.2, Hct 35.8 L, MCV 90.9, MCH 31.0, MCHC 34.1, RDW 13.1, Plt Count 123 L, MPV 12.5 H, Neut # (Auto) SLOT AMBASSADOR, Lymph # (Auto) SLOT AMBASSADOR, [place] # (Auto) SLOT AMBASSADOR, Eos # (Auto) SLOT AMBASSADOR, Baso # (Auto) SLOT AMBASSADOR, Absolute Nucleated RBC SLOT AMBASSADOR, Total Counted 100, Band Neuts % (Manual) 1, Abnorm Lymph % (Manual) 0, Metamyelocytes % 1 H, Nucleated RBC % SLOT AMBASSADOR, Neutrophils # (Manual) 5.1, Lymphocytes # (Manual) 1.8, Monocytes # (Manual) 0.5, Eosinophils # (Manual) 0.0, Basophils # (Manual) 0.1, Differential Comment MANUAL DIFFERENTIAL, WBC Morphology NORMAL APPEARANCE, Platelet Estimate DECREASED (<130,000), Platelet Morphology 1+ GIANT PLATELETS, RBC Morph Micro Appear NORMAL APPEARANCE 11/12/21 14:20: Blood Type O POSITIVE, Antibody Screen NEGATIVE, Crossmatch IS Only See Detail Fish Bones: 11/12/21 22:53 11/12/21 22:53 Home Medications and Allergies Active Medications Carboprost Tromethamine (Carboprost Tromethamine 250 Mcg/Ml Amp) 250 mcg IM .ONCE PRN PRN Reason: Hemorrhage Fentanyl (Fentanyl 100 Mcg/2 Ml Vial) 50 mcg IVP Q1H PRN PRN Reason: Severe Pain (score 7-10) Oxytocin/Sodium Chloride (Pitocin/Sodium Chloride) 500 mls @ 999 mls/hr IV PRN PRN; Protocol PRN Reason: POST- HEMORR PREVENTION Tranexamic Acid (Tranexamic 1,000 Mg/100ml-Nacl) 1,000 mg in 100 mls @ 600 mls/hr IV Q30M PRN PRN Reason: EBL >1200mL and within 3hr Lactated Ringer's (Lr) 1,000 mls @ 125 mls/hr IV .Q8H EWELINA Last Infusion: 11/12/21 23:15 Dose: 999 mls/hr Labetalol HCl (Labetalol 20 Mg/4 Ml Syringe) 20 - 80 mg IVP Q10M PRN; Protocol PRN Reason: SBP> or= 160 OR DBP> or= 110 Lidocaine HCl (Lidocaine-Mpf 1% 30 Ml Vial) 30 ml ID ONCE PRN PRN Reason: PERINEAL REPAIR Stop: 11/13/21 16:54 Methylergonovine Maleate (Methylergonovine 0.2 Mg/Ml Vial) 0.2 mg IM .ONCE PRN PRN Reason: Hemorrhage Misoprostol (Misoprostol 200 Mcg Tablet) 600 mcg BC .ONCE PRN PRN Reason: Hemorrhage Misoprostol (Misoprostol 200 Mcg Tablet) 800 mcg [place] .ONCE PRN PRN Reason: Hemorrhage Oxytocin (Oxytocin 10 Unit/Ml Vial) 10 unit IM .ONCE PRN PRN Reason: Step One if no IV access. Sodium Chloride (Sodium Chloride Flush 0.9% 10 Ml Syringe) 10 ml IVP PRN PRN PRN Reason: NEEDED PER PROVIDER ORDERS Terbutaline Sulfate (Terbutaline 1 Mg/Ml Vial) 0.25 mg SUBQ .ONCE PRN PRN Reason: Tachystole Allergies/Adverse Reactions: Allergies Allergy/AdvReac Type Severity Reaction Status Date / Time No Known Drug Allergies Allergy Verified 04/29/18 20:48 Anes History & Medical History - Anesthetic History Anesthesia Complications: reports: No previous complications - Medical History Cardiovascular: reports: None Pulmonary: reports: None Smoking Status: Never smoker Psychosocial: reports: Anxiety History of Cancer?: No - Obstetrical History : 1 Parity: 0 Events: reports: Gestational diabetes, Other (thrombocytopenia) Plan Anesthesia Type: Epidural Consent for Procedure(s) Verified and Reviewed: Yes Code Status: Attempt Resuscitation ASA classification: 2-Mild systemic disease Is this case an emergency?: Yes
[2021-11-13] MEDS ORDERED: WITCH HAZEL/GLYCERIN 1 PAD TOP PRN (03:18)
[2021-11-13] MEDS ORDERED: HYDROCORTISONE 1% CREAM 28 GM TUBE PR PRN (03:18)
--- NOTE | 2021-11-13 03:33 | DELIVERY NOTE ---
Delivery Note - Labor Labor: positive: Induced by ARM - Infant Delivery Method Delivery Method: positive: Spontaneous vaginal delivery - Cervical Ripening Method Cervical Ripening Method: positive: Misoprostil - Presentation Presentation: positive: Vertex, AGUSTINA - right occiput anterior - Nuchal Cord Nuchal Cord: positive: Present, Reduced - Amniotic Fluid Description Amniotic Fluid Description: positive: Clear - Episiotomy Type Episiotomy Type: positive: None - Laceration Laceration: positive: None, Other - Suture Suture Type: positive: Vicryl Suture Size: positive: 4-0 - Delivery Outcome Delivery Outcome: positive: Livebirth - [place]: positive: Placed in direct skin contact with mother, Stimulated, Warmed, [place] used sex: positive: Male : 9 : 9 - Cord Cord: positive: 3 vessels - Placenta Placenta: positive: Intact, Spontaneous - Estimated Blood Loss Estimated Blood Loss (in cc): 92 (QBL) - Post Delivery Events Post Delivery Events: positive: No post delivery events - Delivery Comments (Free Text/Narrative) Delivery Comments (Free Text/Narrative): Labor: This 26yo @ 39.0wks gestation presented on 11/12/2021 at 1400 for medical induction of labor secondary to A1GDM and gestational thrombocytopenia. Cervix was 3/70/-2 and vertex with intact membranes. FHR pattern demonstrated a Category I pattern throughout labor. She received 1 dose of 50mcg BC misoprostol for pre-induction cervical ripening. AROM occurred at 1853 and was noted to be a moderate amount of clear fluid. Epidural placed upon maternal request. Upon arrival she was noted to have mildly elevated blood pressure 140s/80-90s. She continued to have elevated BPs that remained mild range with the exception of an occasional documented 160/90s which were taken during contractions with repeat BPs in the mildly elevated range. She denied DELGADO, visual disturbances, RUQ or epigastric pain. Her LFTs and creatinine remained normal. Her protein/creatinine ratio was 0.2 with repeat elevated however sample was con taminated by amniotic fluid and blood. Her PLT was initially 123 with repeat 8 hours later 133. She progressed to c/c/+2 @ 0217 with onset of pushing at that time. : Normal of viable male infant on 11/13/2021 @ 0241. Nuchal x 1 was reduced. The was placed on maternal abdomen, stimulated, dried, and placed skin to skin. Apgars were 9/9 at 1 and 5 minutes respectively. Pitocin administered via IV for hemostasis. The umbilical cord was allowed to stop pulsating at which time it was doubly clamped by CNM and cut by FOB. Cord blood was obtained. 3VC. Fundal massage and gentle cord traction applied for active management of the third stage. Placenta delivered spontaneously and intact @ 0247. QBL 92mL. Fourth stage: Uterine fundus firm and there is no excessive bleeding. The speedy neum, vagina, and cervix were inspected and noted to be intact. There was a 2mm superficial left labial laceration which continued to bleed despite applied pressure which was repaired use 1 interrupted stitch with a 4-0 vicryl on an SH needle in standard fashion and under sterile conditions. initiated. Family bonding well. Both mother and baby were left in stable condition.
[2021-11-13] MEDS: LACTATED RINGERS 1,000 ML IV SCH (05:18)
[2021-11-13] MEDS ORDERED: LABETALOL 20 MG/4 ML SYRINGE IVP PRN (06:08)
[2021-11-13] MEDS: ACETAMINOPHEN 500 MG TABLET PO SCH ×3 (06:33→19:27)
[2021-11-13] MEDS: IBUPROFEN 800 MG TABLET PO SCH ×3 (06:34→21:24)
[2021-11-13] MEDS ORDERED: LACTATED RINGERS 1,000 ML IV SCH (07:00)
[2021-11-13] MEDS: DOCUSATE SODIUM 100 MG CAPSULE PO SCH ×2 (08:16→21:24)
--- NOTE | 2021-11-13 13:07 | PROVIDER PROGRESS NOTE ---
Subjective - Subjective Subjective: S: Bonding well with her baby. Having some difficulty with and getting baby to latch. Her mood is good. She is feeling tired but her mood is good and she states overall she is feeling well. Her bleeding is decreased and is light and her pain is well controlled with oral medications. Her Candelaria is supportive at the bedside. She denies DELGADO, visual disturbances, RUQ or epigastric pain. O: BPs have remained normotensive since delivery and secondary to her platelet count significantly improving and her scant blood loss at delivery, a repeat lab panel was not performed. Heart RRR w/o M/G/R, lungs CTAB, abdomen soft and nontender with fundus firm at U, perineum intact, light lochia rubra, bilateral LE's no edema. A: 26yo -->P1 day of delivery s/p TSVD viable male Intact perineum P: Continue routine care and medications. Work closely with nursing staff on today. Evaluate for discharge home tomorrow. Objective - Vital Signs/Intake & Output Vital Signs: Vital Signs x48h Temp Pulse Resp BP Pulse Ox 11/13/21 12:12 36.7 C 72 18 131/80 H 98 11/13/21 07:50 36.9 C 82 20 113/84 H 98 11/13/21 06:25 73 130/73 97 11/13/21 06:23 83 20 144/59 H 96 11/13/21 05:28 37.3 C 70 20 128/81 H 99 Intake & Output: Intake & Output 11/10/21 11/11/21 11/12/21 11/13/21 23:59 23:59 23:59 23:59 Intake Total 5526.125 4700.117 Output Total 350 1950 Balance 861.883 438.117 - Lab Results Fish Bones: 11/12/21 22:53 11/12/21 22:53 Other Labs: Lab Results x24hrs 11/12/21 11/12/21 11/12/21 Range/Units 22:53 22:53 20:22 WBC 12.5 H (4.8-10.8) x10^3/uL RBC 3.92 L (4.20-5.40) 10^6/uL Hgb 12.1 (12.0-16.0) g/dL Hct 35.3 L (37.0-47.0) % MCV 90.1 (81.0-99.0) fL MCH 30.9 (27.0-31.0) pg MCHC 34.3 (32.0-36.0) g/dL RDW 13.0 (12.0-15.0) % Plt Count 133 (130-450) 10^3/uL MPV 13.2 H (7.9-10.8) fL Neut # (Auto) 10.1 H Lymph # (Auto) 1.2 L [place] # (Auto) 1.1 H Eos # (Auto) 0.0 Baso # (Auto) 0.0 Absolute Nucleated RBC 0.00 Total Counted Band Neuts % (Manual) (0 - 10) % Abnorm Lymph % (Manual) % Metamyelocytes % ( - 0) % Nucleated RBC % 0.0 Neutrophils # (Manual) (1.5-6.6) 10^3/uL Lymphocytes # (Manual) (1.5-3.5) 10^3/uL Monocytes # (Manual) (0.0-1.0) 10^3/uL Eosinophils # (Manual) (0-0.7) 10^3/uL Basophils # (Manual) (0-0.1) 10^3/uL Differential Comment Manual Slide Review Indicated WBC Morphology (NORMAL) Platelet Estimate NORMAL (130-450,000) (NORMAL) Platelet Morphology (NORMAL) RBC Morph Micro Appear NORMAL APPEARANCE (NORMAL) Sodium 132 L (135-145) mmol/L Potassium 3.7 (3.5-5.0) mmol/L Chloride 104 (101-111) mmol/L Carbon Dioxide 17 L (21-32) mmol/L Anion Gap 11.0 (6-13) BUN 15 (6-20) mg/dL Creatinine 0.7 (0.4-1.0) mg/dL Estimated GFR (MDRD) 101 (>89) Glucose 104 H (70-100) mg/dL Calcium 8.9 (8.5-10.3) mg/dL Total Bilirubin 0.5 (0.2-1.0) mg/dL AST 19 (10-42) IU/L ALT 20 (10-60) IU/L Alkaline Phosphatase 87 (42-121) IU/L Total Protein 6.2 L (6.7-8.2) g/dL Albumin 2.8 L (3.2-5.5) g/dL Globulin 3.4 (2.1-4.2) g/dL Albumin/Globulin Ratio 0.8 L (1.0-2.2) Urine Creatinine 36.3 mg/dL Ur Total Protein Timed 29 mg/dL Protein/Creatinin Ratio 0.8 H (<=0.2) Blood Type Antibody Screen Crossmatch IS Only 11/12/21 11/12/21 11/12/21 Range/Units 16:35 16:29 14:20 WBC 7.5 (4.8-10.8) x10^3/uL RBC 3.94 L (4.20-5.40) 10^6/uL Hgb 12.2 (12.0-16.0) g/dL Hct 35.8 L (37.0-47.0) % MCV 90.9 (81.0-99.0) fL MCH 31.0 (27.0-31.0) pg MCHC 34.1 (32.0-36.0) g/dL RDW 13.1 (12.0-15.0) % Plt Count 123 L (130-450) 10^3/uL MPV 12.5 H (7.9-10.8) fL Neut # (Auto) LOCKER OPERATOR Lymph # (Auto) LOCKER OPERATOR [place] # (Auto) LOCKER OPERATOR Eos # (Auto) LOCKER OPERATOR Baso # (Auto) LOCKER OPERATOR Absolute Nucleated RBC LOCKER OPERATOR Total Counted 100 Band Neuts % (Manual) 1 (0 - 10) % Abnorm Lymph % (Manual) 0 % Metamyelocytes % 1 H ( - 0) % Nucleated RBC % LOCKER OPERATOR Neutrophils # (Manual) 5.1 (1.5-6.6) 10^3/uL Lymphocytes # (Manual) 1.8 (1.5-3.5) 10^3/uL Monocytes # (Manual) 0.5 (0.0-1.0) 10^3/uL Eosinophils # (Manual) 0.0 (0-0.7) 10^3/uL Basophils # (Manual) 0.1 (0-0.1) 10^3/uL Differential Comment MANUAL DIFFERENTIAL Manual Slide Review WBC Morphology NORMAL APPEARANCE (NORMAL) Platelet Estimate DECREASED (<130,000) (NORMAL) Platelet Morphology 1+ GIANT PLATELETS (NORMAL) RBC Morph Micro Appear NORMAL APPEARANCE (NORMAL) Sodium 132 L (135-145) mmol/L Potassium 4.0 (3.5-5.0) mmol/L Chloride 103 (101-111) mmol/L Carbon Dioxide 22 (21-32) mmol/L Anion Gap 7.0 (6-13) BUN 14 (6-20) mg/dL Creatinine 0.7 (0.4-1.0) mg/dL Estimated GFR (MDRD) 101 (>89) Glucose 78 (70-100) mg/dL Calcium 9.1 (8.5-10.3) mg/dL Total Bilirubin 0.7 (0.2-1.0) mg/dL AST 21 (10-42) IU/L ALT 21 (10-60) IU/L Alkaline Phosphatase 89 (42-121) IU/L Total Protein 6.3 L (6.7-8.2) g/dL Albumin 2.8 L (3.2-5.5) g/dL Globulin 3.5 (2.1-4.2) g/dL Albumin/Globulin Ratio 0.8 L (1.0-2.2) Urine Creatinine 38.6 mg/dL Ur Total Protein Timed 9 mg/dL Protein/Creatinin Ratio 0.2 (<=0.2) Blood Type Antibody Screen Crossmatch IS Only 11/12/21 Range/Units 14:20 WBC (4.8-10.8) x10^3/uL RBC (4.20-5.40) 10^6/uL Hgb (12.0-16.0) g/dL Hct (37.0-47.0) % MCV (81.0-99.0) fL MCH (27.0-31.0) pg MCHC (32.0-36.0) g/dL RDW (12.0-15.0) % Plt Count (130-450) 10^3/uL MPV (7.9-10.8) fL Neut # (Auto) Lymph # (Auto) [place] # (Auto) Eos # (Auto) Baso # (Auto) Absolute Nucleated RBC Total Counted Band Neuts % (Manual) (0 - 10) % Abnorm Lymph % (Manual) % Metamyelocytes % ( - 0) % Nucleated RBC % Neutrophils # (Manual) (1.5-6.6) 10^3/uL Lymphocytes # (Manual) (1.5-3.5) 10^3/uL Monocytes # (Manual) (0.0-1.0) 10^3/uL Eosinophils # (Manual) (0-0.7) 10^3/uL Basophils # (Manual) (0-0.1) 10^3/uL Differential Comment Manual Slide Review WBC Morphology (NORMAL) Platelet Estimate (NORMAL) Platelet Morphology (NORMAL) RBC Morph Micro Appear (NORMAL) Sodium (135-145) mmol/L Potassium (3.5-5.0) mmol/L Chloride (101-111) mmol/L Carbon Dioxide (21-32) mmol/L Anion Gap (6-13) BUN (6-20) mg/dL Creatinine (0.4-1.0) mg/dL Estimated GFR (MDRD) (>89) Glucose (70-100) mg/dL Calcium (8.5-10.3) mg/dL Total Bilirubin (0.2-1.0) mg/dL AST (10-42) IU/L ALT (10-60) IU/L Alkaline Phosphatase (42-121) IU/L Total Protein (6.7-8.2) g/dL Albumin (3.2-5.5) g/dL Globulin (2.1-4.2) g/dL Albumin/Globulin Ratio (1.0-2.2) Urine Creatinine mg/dL Ur Total Protein Timed mg/dL Protein/Creatinin Ratio (<=0.2) Blood Type O POSITIVE Antibody Screen NEGATIVE Crossmatch IS Only See Detail
[2021-11-14] MEDS: IBUPROFEN 800 MG TABLET PO SCH ×2 (04:01→09:49)
[2021-11-14] MEDS: ACETAMINOPHEN 500 MG TABLET PO SCH ×2 (04:01→12:01)
--- NOTE | 2021-11-14 08:19 | Discharge Plan ---
Discharge Plan Problem Reviewed?: Yes Disposition: Home, Self Care Condition: Good Diet: Regular Activity Restrictions: No Restrictions Shower Restrictions: No Driving Restrictions: No Weight Bearing: Full Weight Instruction Topics: Vaginal After No Smoking: If you smoke, Please STOP! Call for help. Follow-up with: Mai Santiago CNM, ARNP [Provider Admit Priv/Credential] -
--- NOTE | 2021-11-14 08:29 | DISCHARGE SUMMARY ---
Discharge Summary Condition at Discharge: Good Discharge Disposition: 01 Home, Self Care - HOSPITAL COURSE Hospital Course: Date of admission: 11/12/2021 Date of discharge: 11/14/2021 Diagnosis on Admission: 1. 26yo @ 39.0wks gestation by LMP c/w 10.6wk U/S 2. A1GDM - tight glycemic control 3. Gestational thrombocytopenia 4. Elevated blood pressure without the diagnosis of gestational hypertension 5. GBS negative 6. FHR Category I Diagnosis on Discharge: 1. 26yo PPD#1 s/p TSVD viable male infant over intact perineum 2. 3. Normal recovery Brief history: She is a patient of [facility] who presented on 11/14/2021 for medical induction of labor secondary to gestational thrombocytopenia and A1GDM. She had mildly elevated BPs throughout her labor course which have resolved since delivery. She did have 1 mildly elevated blood pressure this morning at 141/97 and her labs will be repeated this morning prior to discharge home. She has continued to deny DELGADO, visual disturbances, RUQ or epigastric pain. She received 1 dose of 50mcg BC misoprostol for effective cervical ripening. AROM occurred at 1853 and was noted to be a moderate amount of clear fluid. She progressed to spontaneously deliver a viable male on 11/13/2021 @ 0241. Apgars were 9/9 at 1 and 5 minutes respectively. QBL 92mL. Her perineum was intact. She has been doing well in her course. She is amublating and tolerating a regular diet. She is urinating without difficulty and her lochia is normal. Her pain is well controlled with oral medications. She is with little difficulty - having some difficulty getting baby to open his mouth wide but overall feels confident about nursing. She is bonding well with her baby and her is supportive at the bedside. Pending stable repeat labs she will be discharged home today on day #1 with instructions to continue taking her vitamin while and to continue taking ibuprofen and tylenol over the counter as needed for pain management. She will return for BP check tomorrow and then intends to follow up with myself at [facility] in 1 week for routine visit or sooner if needed. She has been given precautions to call if she has any worsening fevers, chills, abdominal pain, increased vaginal bleeding or foul smelling vaginal l ochia. In addition we reviewed the s/sx of PIH and pt knows when to present for urgent evaluation. - ALLERGIES Allergies/Adverse Reactions: Allergies Allergy/AdvReac Type Severity Reaction Status Date / Time No Known Drug Allergies Allergy Verified 04/29/18 20:48 - LABS Result Diagrams: 11/12/21 22:53 11/12/21 22:53
[2021-11-14 08:45] LABS: HCT - HEMATOCRIT 35.1 % (37.0-47.0); HGB - HEMOGLOBIN 11.6 g/dL (12.0-16.0); MEAN CORPUSCULAR HEMOGLOBIN 30.4 pg (27.0-31.0); MEAN CORPUSCULAR VOLUME 91.9 fL (81.0-99.0); MEAN PLATELET VOLUME 12.3 fL (7.9-10.8); RED BLOOD COUNT 3.82 10^6/uL (4.20-5.40); RED CELL DISTRIBUTION WIDTH 13.3 % (12.0-15.0); WHITE BLOOD COUNT 9.8 x10^3/uL (4.8-10.8)
[2021-11-14 08:56] LABS: ALBUMIN 2.5 g/dL (3.2-5.5); ALBUMIN/GLOBULIN RATIO 0.8 (1.0-2.2); BILIRUBIN,TOTAL 0.4 mg/dL (0.2-1.0); CALCIUM 8.6 mg/dL (8.5-10.3); CREATININE 0.7 mg/dL (0.4-1.0); POTASSIUM 3.8 mmol/L (3.5-5.0); TOTAL PROTEIN 5.7 g/dL (6.7-8.2)
[2021-11-14 09:20] VITALS: BP 141/97
[2021-11-14] MEDS: DOCUSATE SODIUM 100 MG CAPSULE PO SCH (09:33)
--- NOTE | 2021-11-14 14:37 | Labor Flowsheet ---
Labor Flowsheet Datetime Report Generated by CPN: 11/14/2021 14:37 Datetime: 11/14/2021 08:18 VITAL SIGNS NBP Sys/Maria A/Mean (mmHg): 141 : 97 : 104 Pulse: 68 Datetime: 11/14/2021 07:35 SpO2 (%): 99 Datetime: 11/13/2021 03:03 Membranes Ruptured Date/Time: 11/12/2021 18:47 Datetime: 11/13/2021 02:47 Stage of : Recovery Datetime: 11/13/2021 02:46 LaborFlag: Labor Datetime: 11/13/2021 02:37 UTERINE ACTIVITY Monitor Mode: External Frequency (min): 2 Quality: Strong Duration (sec): 60-70 Pattern: Normal: <= 5 Contractions in 10 Minutes Resting Tone (Palpate): Relaxed ASSESSMENT A Monitor Mode: External US FHR Baseline Rate : 140 Variability: Moderate 6-25 bpm Accelerations: None Decelerations: Variable Category: Category II Datetime: 11/13/2021 02:12 FHR Baseline Changes: Tachycardia Datetime: 11/13/2021 02:07 Respirations: 18 Temperature (C): 37.1 Temperature Route: Tympanic Datetime: 11/13/2021 01:50 VAGINAL EXAM Dilatation (cm): 9.0 Effacement (%): 100 Station: 2 Exam by: Ellie RN Membrane Status: Ruptured Datetime: 11/13/2021 01:29 PAIN Pain Scale: 0 Datetime: 11/13/2021 01:15 Comments: ausc fht in 130 plan to change unit out Datetime: 11/13/2021 00:07 Epidural Procedure Other: Pump Started Datetime: 11/12/2021 23:57 Anesthesia Comments: positioned RL Datetime: 11/12/2021 23:53 Epidural Procedure: Test Dose Datetime: 11/12/2021 23:43 MEDICATIONS Medication Comments: iv fluid bolus complete Datetime: 11/12/2021 23:41 PROCEDURE TIME OUT Procedure Verify: Correct Patient Identity; Accurate Procedure Consent Form; Agreement on Procedure to be Done; Correct Patient Position; Addressed Need to Administer Antibiotics or Fluids for Irrigat ion; Safety Precautions Based on Patient History or Medication Use ANESTHESIA Anesthesia Plans: Epidural Epidural Positioning: Sitting Datetime: 11/12/2021 23:31 Monitor Interventions for FHR: Ultrasound Adjusted Datetime: 11/12/2021 22:07 Vital Sign Comments: standing at BS during BP Datetime: 11/12/2021 22:05 Monitor Interventions for UA: Leroy Adjusted Contraction Comments: palpation Pain Presence: Intermittent Pain Assessment Comments: moves with contractions but is also watching TV Datetime: 11/12/2021 21:10 Vaginal Bleeding: Normal Show MATERNAL ASSESSMENT Level of Consciousness: Alert Datetime: 11/12/2021 19:13 DTR's/Clonus: DTRs 2+ Headache: Denies Nausea/Vomiting: Denies RUQ Epigastric Pain: Denies Datetime: 11/12/2021 18:53 Membranes Rupture Method: Artificial Amniotic Fluid Color: Clear Amniotic Fluid Amount: Moderate Amniotic Fluid Odor: None Datetime: 11/12/2021 18:47 Cervix, Position: Anterior Datetime: 11/12/2021 18:43 COMMUNICATION Communication: Provider at Bedside
== END 2021-11-14 14:00 | disposition home or self-care (01) | DRG 806 ==
LOC: WFO 13:56 → FBP 13:58 → WFO 16:53 → FBP 16:54
PROVIDERS: ADMIT Nurse Practitioner Obstetrics & Gynecology; ATTEND Nurse Practitioner Obstetrics & Gynecology
PROC: 10907ZC Drainage of Amniotic Fluid, Therapeutic from Products of Conception, Via Natural or Artificial Opening (ICD-10-PCS; 2021-11-12)
PROC: 3E0DXGC Introduction of Other Therapeutic Substance into Mouth and Pharynx, External Approach (ICD-10-PCS; 2021-11-12)
PROC: 10E0XZZ Delivery of Products of Conception, External Approach (ICD-10-PCS; principal; 2021-11-13)
DX: O24.02 Pre-existing type 1 diabetes mellitus, in childbirth (principal); O99.12 Other diseases of the blood and blood-forming organs and certain disorders involving the immune mechanism complicating childbirth; Z37.0 Single live birth; D69.6 Thrombocytopenia, unspecified; Z3A.39 39 weeks gestation of pregnancy; O75.89 Other specified complications of labor and delivery; R03.0 Elevated blood-pressure reading, without diagnosis of hypertension; Z62.819 Personal history of unspecified abuse in childhood; Z81.8 Family history of other mental and behavioral disorders; Z82.3 Family history of stroke; Z83.49 Family history of other endocrine, nutritional and metabolic diseases; Z83.79 Family history of other diseases of the digestive system; Z86.59 Personal history of other mental and behavioral disorders
CPT/HCPCS: 36415; 80053; 82570; 84156; 85025; 85027; 86850; 86900; 86901; 86920; A9270; J7120